=== PATIENT | female | born 1950 | race African-American/Black ===

== ENCOUNTER 2018-06-17 09:10 | Emergency (ER) | payer BC, OTHER ==
[2018-06-17 09:30] VITALS: BP 159/84; PULSE 65; TEMP 97.7; BMI 21.9
--- NOTE | 2018-06-17 11:23 | PDOC ---
History of Present Illness - General Chief Complaint: Injury Stated Complaint: FALL Time Seen by Provider: 06/17/18 10:03 History Source: Patient Exam Limitations: Clinical Condition - History of Present Illness Initial Comments: 06/17/18 11:18 Patient with no significant past medical history present with complaint of left knee and left wrist and hand pain status post slip and fall in the street today. This is the third fall in the past 4 months. Patient was advised she will need a cane to help with ambulate the patient refused to use cane. Patient denies dizziness, lightheadedness before or after fall .patient denies hitting head or loss of consciousness Timing/Duration: 1-3 hours Past History - Past Medical History Allergies/Adverse Reactions: Allergies Allergy/AdvReac Type Severity Reaction Status Date / Time Penicillins Allergy Mild Hives Verified 06/17/18 09:55 Home Medications: Ambulatory Orders Amlodipine Besylate 10 mg PO DAILY 02/19/15 Aspirin [ASA -] 81 mg PO DAILY 02/19/15 Clopidogrel Bisulfate [Plavix -] 75 mg PO DAILY 02/19/15 Metoprolol Succinate [Toprol Xl -] 100 mg PO DAILY 02/19/15 Valsartan 320 mg PO DAILY 02/19/15 Arm Brace [Wrist Brace] 1 each MC DAILY #1 each 06/17/18 Cardiac Disorders: Yes (5 stents) COPD: No GI Disorders: Yes (DIVERTICULITIS) HTN: Yes Kidney Stones: Yes - Surgical History Cardiac Surgery: Yes (5 stents) - Immunization History Immunization Up to Date: Yes - Suicide/Smoking/Psychosocial Hx Smoking Status: No Smoking History: Never smoked Have you smoked in the past 12 months: No Number of Cigarettes Smoked Daily: 0 If you are a former smoker, when did you quit?: many years Information on smoking cessation initiated: No Hx Alcohol Use: No Drug/Substance Use Hx: No Substance Use Type: None Review of Systems - Review of Systems Able to Perform ROS?: Yes Is the patient limited French proficient: No Constitutional: No: Weakness HEENTM: No: Symptoms Reported, Recent change in vision, Double Vision Respiratory: No: Symptoms reported Cardiac (ROS): No: Symptoms Reported Musculoskeletal: Yes: See HPI, Joint Pain (left knee), Muscle Pain (left knee. left hand). No: Joint Stiffness Neurological: No: Numbness, Paresthesia, Tingling, Weakness All Other Systems: Reviewed and Negative *Physical Exam - Vital Signs Last Vital Signs Temp Pulse Resp BP Pulse Ox 97.7 F 65 16 159/84 100 06/17/18 09:27 06/17/18 09:27 06/17/18 09:27 06/17/18 09:27 06/17/18 09:27 - Physical Exam Comments: 06/17/18 11:40 GENERAL: Well developed, well nourished. Awake and alert. No acute distress. CARDIOVASCULAR: Regular rate and rhythm. No murmurs, rubs, or gallops. PULMONARY: No evidence of respiratory distress. Lungs clear to auscultation bilaterally. No wheezing, rales or rhonchi. ABDOMINAL: Soft. Non-tender. Non-distended. No rebound or guarding. No organomegaly. Normoactive bowel sounds MUSCULOSKELETAL : moderate tenderness over dorsal aspect of left hand and wrist down to left 4th and 5th phalanges. no swelling to hand or wrist. No tenderness to left forearm, elbow or upper arm. FROM of left wrist and hand. mild tenderness to anterior patella of left knee. No bony deformities SKIN: Warm and dry. Normal capillary refill. multiple superficial abrasions to anterior patella of left knee with minimal bleeding. NEUROLOGICAL: Alert, awake, appropriate. No motor deficits in the lower extremities. Gait is normal without ataxia. PSYCHIATRIC: Cooperative. Good eye contact. Appropriate mood and affect. General Appearance: Yes: Nourished, Appropriately Dressed. No: Apparent Distress ED Treatment Course - RADIOLOGY Radiology Studies Ordered: Category Date Time Status KNEE 3 POS-LEFT [RAD] Stat Radiology 06/17/18 10:22 Taken WRIST W/HAND-LEFT* [RAD] Stat Radiology 06/17/18 10:22 Taken Medical Decision Making - Medical Decision Making 06/17/18 11:20 Patient with no significant past medical history present with complaint of left knee and left wrist and hand pain status post slip and fall in the street today. This is the third fall in the past 4 months. Patient was advised she will need a cane to help with ambulate the patient refused to use cane. Patient denies dizziness, lightheadedness before or after fall .patient denies hitting head or loss of consciousness. Exam significant for multiple superficial abrasion to anterior patella of left knee with mild tenderness to patellar of left knee. Mild tenderness to dorsal aspect of left wrist and hand which is worse with flexion of left wrist. No hand swelling or deformity. Point tenderness over medial side of left wrist. X-ray of left wrist showed separation of distal ulnar radial joint with no acute fracture. X-ray of left knee shows no acute pathology. Patient will be discharged home on hand support brace with orthopedist follow-up. Patient educated on home wound care with bacitracin to wound twice a day until healed. Patient advised on use of cane to help with ambulate and will get cane at pharmacy today *DC/Admit/Observation/Transfer Diagnosis at time of Disposition: Abrasion, left knee, initial encounter, Left anterior knee pain Sprain of left wrist Qualifiers: Encounter type: initial encounter Qualified Code(s): S63.502A - Unspecified sprain of left wrist, initial encounter - Discharge Dispostion Disposition: HOME Condition at time of disposition: Stable Decision to Admit order: No - Prescriptions Prescriptions: Arm Brace [Wrist Brace] 1 each MC DAILY #1 each - Referrals Referrals: Miguel Franklin DO [Staff Physician] - - Patient Instructions Printed Discharge Instructions: DI for Wrist Sprain, DI for Knee Sprain Additional Instructions: use provide wrist support splint daily until orthopedics follow-up. Take Tylenol as needed for pain. Use provided bacitracin on wound twice/day until healed. Use cane to ambulate as discussed. Follow-up with referred orthopedics for wrist pain - Post Discharge Activity
== END 2018-06-17 11:58 | disposition home or self-care (01) ==
LOC: JERFT 09:10
DX: S63.502A Unspecified sprain of left wrist, initial encounter (principal); M25.562 Pain in left knee; S80.212A Abrasion, left knee, initial encounter; W18.39XA Other fall on same level, initial encounter; Y93.89 Activity, other specified; Y92.410 Unspecified street and highway as the place of occurrence of the external cause; Z95.5 Presence of coronary angioplasty implant and graft; I10 Essential (primary) hypertension; Z87.442 Personal history of urinary calculi
CPT/HCPCS: 73110-TC-LT-FY; 73130-TC-LT-FY; 73562-TC-LT-FY; 99281-25

== ENCOUNTER 2018-07-04 08:45 | Emergency (ER) | payer BC, OTHER ==
[2018-07-04 08:54] VITALS: BP 136/77; PULSE 67; TEMP 97.6; BMI 20.2
--- NOTE | 2018-07-04 09:12 | PDOC ---
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 Patient states she started having pain on the the left side of her chest overlying a dermatomal distribution on . On Friday, she developed a significant rash and the pain continued, now rated 15/10. Patient unable to sleep last night as she was not able to lay on her left side. She states her current pain does not feel like the chest pain she has when she had an [place]. Has not taken anything over-the- counter for her pain. Reports that she had a stress test and carotid doppler study last week but does not know the result. Patient says she believes she received the shingles vaccine. No nausea, vomiting, or diaphoresis. Denies fevers or chills. PCP: Dr. Valdez Cardio: Dr. Willoughby Past History - Past Medical History Allergies/Adverse Reactions: Allergies Allergy/AdvReac Type Severity Reaction Status Date / Time Penicillins Allergy Mild Hives Verified 06/17/18 09:55 Home Medications: Ambulatory Orders Amlodipine Besylate 10 mg PO DAILY 02/19/15 Aspirin [ASA -] 81 mg PO DAILY 02/19/15 Clopidogrel Bisulfate [Plavix -] 75 mg PO DAILY 02/19/15 Atorvastatin Ca [Lipitor] 80 mg PO HS 07/03/18 Gabapentin [Neurontin -] 400 mg PO BID 07/03/18 Lipase/Protease/Amylase [Az Lomax 3,000 Units Capsule] 1 cap PO DAILY 07/03/18 Metoprolol Succinate [Toprol Xl] 50 mg PO DAILY 07/03/18 Pantoprazole Sodium 40 mg PO DAILY 07/03/18 Valsartan 80 mg PO DAILY 07/03/18 Ibuprofen [Motrin -] 600 mg PO Q6H PRN #60 tablet 07/04/18 Valacyclovir HCl [Valtrex -] 1,000 mg PO TID #20 tablet 07/04/18 Cardiac Disorders: Yes (CAD S/P PCI/STENT,[place],MITRSL VALVE PROLAPSE,REGURGITATION ) CVA: Yes (RIGHT SIDED RESIDUAL DEFICIT) COPD: No GI Disorders: Yes (DIVERTICULOSIS) HTN: Yes Hypercholesterolemia: Yes Kidney Stones: Yes - Surgical History Cardiac Surgery: Yes (S/P CORONARY STENT PLACEMENT) - Immunization History Immunization Up to Date: Yes - Suicide/Smoking/Psychosocial Hx Smoking Status: No Smoking History: Unknown if ever smoked Have you smoked in the past 12 months: No Number of Cigarettes Smoked Daily: 0 If you are a former smoker, when did you quit?: many years Hx Alcohol Use: No Drug/Substance Use Hx: No Substance Use Type: None Review of Systems - Review of Systems Comments:: Constitutional: no fever, no chills HEENT: no throat pain, no dysphagia Cardiovascular: +chest pain, no palpitations Respiratory: no cough, no shortness of breath Gastrointestinal: no abdominal pain, no nausea Genitourinary: no dysuria, no frequency Musculoskeletal: no myalgia, no arthralgia Skin: +rash, +skin pain Neurologic: no headache, no weakness *Physical Exam - Vital Signs Last Vital Signs Temp Pulse Resp BP Pulse Ox 97.6 F 67 17 136/77 100 07/04/18 08:47 07/04/18 08:47 07/04/18 08:47 07/04/18 08:47 07/04/18 08:47 - Physical Exam Comments: General: Awake, alert, and fully oriented, in no acute distress Head: No signs of trauma Eyes: EOMI, sclera anicteric ENT: Moist mucus membranes Neck: Normal ROM, supple Lungs: Lungs clear, Normal breath sounds Cardio: Regular rhythm, S1 and S2 present Abdomen: Soft, nontender. No guarding, no rebound, no masses Extremities: Normal range of motion, Distal pulses present SKIN: Vesicular rash present unilaterally on the left overlying T4-T6 distribution both anteriorly and posteriorly which is tender to palpation and without crusting, does not cross midline Neurologic: Cranial nerves II through XII grossly intact. 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 DDX including herpes zoster, ACS, PE, PNA, MSK Patient's pain is likely due to shingles rash, but since she has cardiac risk factors, we will proceed with cardiac workup. Percocet and motrin ordered for analgesia First dose of valtrex for herpes zoster 07/04/18 10:36 CBC WBC 4.0 K/mm3 (4.0-10.0) 07/04/18 10:29 RBC 4.34 M/mm3 (3.60-5.2) 07/04/18 10:29 Hgb 13.4 GM/dL (10.7-15.3) 07/04/18 10:29 Hct 39.6 % (32.4-45.2) 07/04/18 10:29 MCV 91.3 fl (80-96) 07/04/18 10:29 MCH 30.8 pg (25.7-33.7) 07/04/18 10:29 MCHC 33.7 g/dl (32.0-36.0) 07/04/18 10:29 RDW 13.1 % (11.6-15.6) 07/04/18 10:29 Plt Count 163 K/MM3 (134-434) D 07/04/18 10:29 MPV 7.7 fl (7.5-11.1) 07/04/18 10:29 Absolute Neuts (auto) 1.8 K/mm3 (1.5-8.0) 07/04/18 10:29 Neutrophils % 44.5 % (42.8-82.8) D 07/04/18 10:29 Neutrophils % (Manual) 39.7 % (42.8-82.8) L 07/04/18 10:29 Band Neutrophils % 1.7 % 07/04/18 10:29 Lymphocytes % 30.7 % (8-40) D 07/04/18 10:29 Lymphocytes % (Manual) 35.3 % (8-40) 07/04/18 10:29 Monocytes % 23.4 % (3.8-10.2) H D 07/04/18 10:29 Monocytes % (Manual) 9 % (3.8-10.2) 07/04/18 10:29 Eosinophils % 0.5 % (0-4.5) 07/04/18 10:29 Eosinophils % (Manual) 0.0 % (0-4.5) 07/04/18 10:29 Basophils % 0.9 % (0-2.0) 07/04/18 10:29 Basophils % (Manual) 0.0 % (0-2.0) 07/04/18 10:29 Myelocytes % (Man) 0 % (0-2) 07/04/18 10:29 Promyelocytes % (Man) 0 % (0-2) 07/04/18 10:29 Blast Cells % (Manual) 0 % (0-0) 07/04/18 10:29 Nucleated RBC % 0 % (0-0) 07/04/18 10:29 Metamyelocytes 0 % (0-2) 07/04/18 10:29 Hypochromia 0 07/04/18 10:29 Platelet Estimate Normal 07/04/18 10:29 Polychromasia 0 07/04/18 10:29 Poikilocytosis 0 07/04/18 10:29 Anisocytosis 1+ 07/04/18 10:29 Microcytosis 1+ 07/04/18 10:29 Macrocytosis 0 07/04/18 10:29 No anemia or leukocytosis CMP Sodium 137 mmol/L (136-145) 07/04/18 10:29 Potassium 4.8 mmol/L (3.5-5.1) 07/04/18 10:29 Chloride 107 mmol/L (98-107) 07/04/18 10:29 Carbon Dioxide 25 mmol/L (21-32) 07/04/18 10:29 Anion Gap 6 MMOL/L (8-16) L 07/04/18 10:29 BUN 18 mg/dL (7-18) 07/04/18 10:29 Creatinine 1.2 mg/dL (0.55-1.3) 07/04/18 10:29 Creat Clearance w eGFR 44.54 (>60) 07/04/18 10:29 Random Glucose 99 mg/dL (74-106) 07/04/18 10:29 Calcium 9.7 mg/dL (8.5-10.1) 07/04/18 10:29 Total Bilirubin 0.5 mg/dL (0.2-1) 07/04/18 10:29 AST 19 U/L (15-37) 07/04/18 10:29 ALT 16 U/L (13-61) 07/04/18 10:29 Alkaline Phosphatase 82 U/L (45-117) 07/04/18 10:29 Creatine Kinase 56 U/L (26-192) 07/04/18 10:29 Troponin I < 0.02 ng/ml (0.00-0.05) 07/04/18 10:29 Total Protein 7.6 g/dl (6.4-8.2) 07/04/18 10:29 Albumin 3.9 g/dl (3.4-5.0) 07/04/18 10:29 Electrolytes unremarkable Tpn undetectable EKG: rate 63, QTc 402, NSR, LVH, no acute ischemic changes CXR: "A single AP view of the chest is submitted. There are clear lungs, normal heart, unfolded aorta and normal dilan. The angles are sharp. The soft tissues are intact. There are degenerative changes. Impression: No acute chest pathology." Patient sleeping in stretcher Valtrex sent to pharmacy Awaiting callback from patient's eligibility supervisor 07/04/18 11:[address] Damon, eligibility supervisor, who is covering Dr. Willoughby's patients today. Informed him that patient's atypical chest pain is likely due to her shingles rash. As this is the case, he is amenable with patient's discharge home. Patient declined opioid pain medicine as an outpatient prescription; motrin prescription sent Patient will be discharged 07/04/18 11:52 *DC/Admit/Observation/Transfer Diagnosis at time of Disposition: Shingles rash Qualifiers: Herpes zoster complications: without complications Qualified Code(s): B02.9 - Zoster without complications - Discharge Dispostion Disposition: HOME Condition at time of disposition: Stable - Prescriptions Prescriptions: Ibuprofen [Motrin -] 600 mg PO Q6H PRN #60 tablet PRN Reason: Pain Valacyclovir HCl [Valtrex -] 1,000 mg PO TID #20 tablet - Referrals - Patient Instructions Printed Discharge Instructions: DI for Shingles Additional Instructions: You came into the ED for chest pain. We performed blood work, EKG, and an Xray which was at your baseline. Your rash is consistent with shingles. Follow-up with a primary care doctor this week to discuss this ED visit and to further evaluate your rash and your chest pain. Your workup is not complete until you do so. Call and make an appointment at the number provided. Prescriptions sent to your pharmacy. You can also take [id number] tylenol or motrin for pain. Follow the instructions on the medication bottle. Please review the handout about your rash. Call for emergency medicine services or go to the emergency room right away if you have symptoms of a heart attack, including: Chest pain, which may feel like a crushing weight A sense of fullness, squeezing, or pressure in the chest Rapid, irregular heartbeat Pain, tingling or numbness in the left shoulder and arm, the neck or jaw, or the right arm Sweating Nausea or vomiting Lightheadedness, weakness, or fainting Shortness of breath If you think you have an emergency, call for medical help right away. - Post Discharge Activity
[2018-07-04] MEDS ORDERED: IBUPROFEN 400 MG TABLET (FP) PO ONE ×2 (10:09→10:24)
--- NOTE | 2018-07-04 10:12 | PDOC ---
Attending Attestation - Resident Resident Name: Berna Seo - ED Attending Attestation I have performed the following: I have examined & evaluated the patient, The case was reviewed & discussed with the resident, I agree w/resident's findings & plan, Exceptions are as noted - HPI HPI: 07/04/18 10:08 67 yo F wtih h/o htn cad ( stents ) HLD here with c/o chest pain. pt states she has a blistery rash under left breast radiating around to back, started yesterday. no f/c states she has associated pain. feels different from pain of prior mi prior to her stents. no n/v no f/c no weakness. no other complaints. insole presser is dr beaulieu. had a stress test last week unsure of results. - Physicial Exam PE: 07/04/18 10:09 awake alert lungs clear bilaterally heart rrr no mrg abd soft nt nd. ext wwp no edema. no calf tenderness. skin zostiform rash under left breast radiating arou d back in t/4/5 dermatome region. fluid filled blisters. - Medical Decision Making 07/04/18 10:11 pt with h/o cad htn here with chest pain and singles. pain likley related to rash. however due to cardiac history cee obtain ekg enzymes and basic labs for underlyingcreatiting prior to starting valtrex. will try to reach insole presser dr beaulieu. ekg unchanged. motrin and percocet for pain control. Heart Score/ECG Review #1 General ECG Interpretation: Sinus Rhythm, Normal Rate (63), Normal Intervals, No acute ischemic changes Compared to previous ECG there are: No significant change (comparison 04/28/15)
[2018-07-04 10:41] LABS: BASO % 0.9 % (0-2.0); EOS % 0.5 % (0-4.5); HEMATOCRIT 39.6 % (32.4-45.2); HEMOGLOBIN 13.4 GM/dL (10.7-15.3); LYMPH % 30.7 % (8-40); MCH 30.8 pg (25.7-33.7); MCHC 33.7 g/dl (32.0-36.0); MEAN CELL VOLUME 91.3 fl (80-96); MEAN PLT VOLUME 7.7 fl (7.5-11.1); MONO % 23.4 % (3.8-10.2); NEUT % 44.5 % (42.8-82.8); PLATELET COUNT 163 K/MM3 (134-434); RBC 4.34 M/mm3 (3.60-5.2); RDW 13.1 % (11.6-15.6)
[2018-07-04] MEDS ORDERED: valACYclovir HCL 1000 MG TABLET PO ONE (10:42)
[2018-07-04] MEDS ORDERED: valACYclovir HCL 500 MG TABLET (FP) ONE (10:50)
[2018-07-04 11:07] LABS: ALBUMIN 3.9 g/dl (3.4-5.0); ALK PHOS 82 U/L (45-117); ANION GAP 6 MMOL/L (8-16); BILIRUBIN,TOTAL 0.5 mg/dL (0.2-1); BLOOD UREA NITROGEN 18 mg/dL (7-18); CALCIUM 9.7 mg/dL (8.5-10.1); CHLORIDE 107 mmol/L (98-107); CO2 25 mmol/L (21-32); CREATININE 1.2 mg/dL (0.55-1.3); GLUCOSE,RANDOM 99 mg/dL (74-106); POTASSIUM 4.8 mmol/L (3.5-5.1); SGOT/AST 19 U/L (15-37); SGPT/ALT 16 U/L (13-61); SODIUM 137 mmol/L (136-145); TOT PROT 7.6 g/dl (6.4-8.2)
[2018-07-04 13:16] LABS: ANISOCYTOSIS 1+; MACROCYTOSIS 0; PLATELET ESTIMATE NORMAL
--- NOTE | 2018-07-04 15:04 | EKG ---
Test Reason : Blood Pressure : / mmHG Vent. Rate : 063 BPM Atrial Rate : 063 BPM P-R Int : 162 ms QRS Dur : 104 ms QT Int : 402 ms P-R-T Axes : 069 055 054 degrees QTc Int : 411 ms NORMAL SINUS RHYTHM POSSIBLE LEFT ATRIAL ENLARGEMENT LEFT VENTRICULAR HYPERTROPHY ABNORMAL ECG WHEN COMPARED WITH ECG OF 28-APR-2015 21:13, NON-SPECIFIC CHANGE IN ST SEGMENT IN ANTERIOR LEADS Confirmed by LISETTE STONE, CECE ([id number]) on 07/04/2018 3:04:32 PM Referred By: Confirmed By:CECE KNOX MD
== END 2018-07-04 12:42 | disposition home or self-care (01) ==
LOC: JER 08:45
DX: B02.9 Zoster without complications (principal); I25.10 Atherosclerotic heart disease of native coronary artery without angina pectoris; I10 Essential (primary) hypertension; Z95.5 Presence of coronary angioplasty implant and graft; I25.2 Old myocardial infarction; E78.5 Hyperlipidemia, unspecified; I34.1 Nonrheumatic mitral (valve) prolapse; I34.0 Nonrheumatic mitral (valve) insufficiency; I69.859 Hemiplegia and hemiparesis following other cerebrovascular disease affecting unspecified side; Z79.01 Long term (current) use of anticoagulants
CPT/HCPCS: 36415; 71045-TC-FY; 80053; 82550; 84484; 85025; 93005; 93010; 99282-25

== ENCOUNTER 2018-10-01 12:56 | Day surgery (SDC) | payer BC, OTHER ==
[2018-10-01 13:35] VITALS: BMI 19.5
[2018-10-01] MEDS ORDERED: LIDOCAINE VISCOUS 2% ORAL/TOP 20 ML UNIT-DOSE CUP ONE (13:36)
[2018-10-01 14:54] VITALS: TEMP 98.3
--- NOTE | 2018-10-01 14:58 | ECHO ---
Name: DIXON, AJIRO Exam:Transesophageal Echocardiogram Study Date: 10/01/2018 02:02 PM Age: 67 yrs Reason For Study: MITRAL VALVE PROLAPSE Height: 63 in Weight: 110 lb BSA: 1.5 m2 Procedure: A 2D transesophageal echocardiogram with Doppler and color flow Doppler was performed. Informed conse nt for Transesophageal Echocardiogram, and use of a contrast agent as needed, was obtained prior to the proc edure. The patient was brought to the endoscopy suite in a fasting state. An intravenous line was placed. A topical anesthetic agent was used for oropharangeal anesthesia. A bite block was inserted. IV concious sedati on was administered using propafol. A multifrequency, multiplane transesopheageal echocardiographic endoscop e was inserted and manipulated in the standard fashion to achieve multiplane views. The usual views were ob tained; basal, mid-esophageal, transgastric and aortic views. The patient's vital signs, including blood pres sure, heart rate, pulse oximetry and cardiac rhythm were monitored throughout the procedure and remained st able. The patient tolerated the procedure well without evidence of orophangeal or esophageal trauma. There were no complications. The patient was in normal sinus rhythm during the exam. Left Ventricle The left ventricle is normal in size. Left ventricular systolic function is normal. The left ventricu lar ejection fraction is normal. No regional wall motion abnormalities noted. Atria The left atrial size is normal. No thrombus is detected in the left atrial appendage. No left atrial mass or thrombus visualized. The interatrial septum is intact with no evidence for an atrial septal defect. I njection of contrast documented no interatrial shunt. Mitral Valve There is severe mitral valve prolapse. Prolapse of the posterior mitral leaflet(s). Prolapse of the m iddle scallop of the posterior mitral leaflet. There is moderate to severe mitral regurgitation. The mitral regurgitant jet is anteriorly directed, which is consistent with posterior leaflet pathology. Tricuspid Valve The tricuspid valve is not well visualized, but is grossly normal. There is mild tricuspid regurgitat ion. Aortic Valve The aortic valve is trileaflet. The aortic valve opens well. The aortic valve is normal in structure and function. Trace aortic regurgitation. Pulmonic Valve The pulmonic valve is not well visualized. Great Vessels Diffuse atherosclerotic plaque with ulceration and calcification noted in decending thoracic aorta an d distal aortic arch. Pericardium/Pluera There is no pericardial effusion. Interpretation Summary The left ventricle is normal in size. Left ventricular systolic function is normal. The left ventricular ejection fraction is normal. No regional wall motion abnormalities noted. The left atrial size is normal. No thrombus is detected in the left atrial appendage. No left atrial mass or thrombus visualized. The interatrial septum is intact with no evidence for an atrial septal defect. Injection of contrast documented no interatrial shunt. There is severe mitral valve prolapse. Prolapse of the posterior mitral leaflet(s). Prolapse of the middle scallop of the posterior mitral leaflet. There is moderate to severe mitral regurgitation. The mitral regurgitant jet is anteriorly directed, which is consistent with posterior leaflet patholo gy. There is mild tricuspid regurgitation. The aortic valve is normal in structure and function. Trace aortic regurgitation. Diffuse atherosclerotic plaque with ulceration and calcification noted in decending thoracic aorta an d distal aortic arch There is no pericardial effusion. Rogers Willoughby MD 10/01/2018 02:57 PM
[2018-10-01 15:31] VITALS: BP 146/67; PULSE 61
== END 2018-10-01 15:35 | disposition home or self-care (01) ==
LOC: JASU-SURG 12:56
PROVIDERS: ATTEND Internal Medicine Cardiovascular Disease
PROC: B246ZZ4 Ultrasonography of Right and Left Heart, Transesophageal (ICD-10-PCS; principal; 2018-10-01 13:00)
DX: I34.0 Nonrheumatic mitral (valve) insufficiency (principal)
CPT/HCPCS: 93312; 93325

== ENCOUNTER 2020-03-14 11:42 | Inpatient (IN) | payer BC, OTHER ==
[2020-03-14] MEDS ORDERED: ASPIRIN 325 MG TABLET PO ONE (12:13)
[2020-03-14] MEDS ORDERED: NITROGLYCERIN 2% OINTMENT - 1GM PACKET TD ONE (12:14)
[2020-03-14] MEDS ORDERED: ASPIRIN 325 MG ENTERIC COATED TABLET (FP) ONE (13:15)
[2020-03-14] MEDS ORDERED: NITROGLYCERIN SUBLINGUAL 1/150 0.4 MG TAB ONE (13:17)
[2020-03-14] MEDS: NITROGLYCERIN SUBLINGUAL 1/150 0.4 MG TAB SL PRN ×2 (13:20→13:35)
[2020-03-14 13:37] LABS: BASO % 0.4 % (0-2.0); EOS % 0.4 % (0-4.5); HEMATOCRIT 46.1 % (32.4-45.2); HEMOGLOBIN 15.3 GM/dL (10.7-15.3); LYMPH % 23.1 % (8-40); MCH 30.3 pg (25.7-33.7); MCHC 33.2 g/dl (32.0-36.0); MEAN CELL VOLUME 91.4 fl (80-96); MEAN PLT VOLUME 8.3 fl (7.5-11.1); MONO % 4.5 % (3.8-10.2); NEUT % 71.6 % (42.8-82.8); PLATELET COUNT 249 K/MM3 (134-434); RBC 5.05 M/mm3 (3.60-5.2); RDW 13.5 % (11.6-15.6); WHITE BLOOD COUNT 9.6 K/mm3 (4.0-10.0)
[2020-03-14] MEDS ORDERED: ACETAMINOPHEN 1000 MG/100 ML VIAL (NON FORMULARY) IVPB ONE (13:49)
[2020-03-14 14:01] LABS: POTASSIUM 5.3 mmol/L (3.5-5.1)
[2020-03-14 14:03] LABS: ALBUMIN 4.1 g/dl (3.4-5.0); BLOOD UREA NITROGEN 19.8 mg/dL (7-18); CALCIUM 9.7 mg/dL (8.5-10.1)
[2020-03-14 14:06] LABS: CREATININE 0.9 mg/dL (0.55-1.3)
[2020-03-14 14:08] LABS: BILIRUBIN,TOTAL 0.7 mg/dL (0.2-1); TOT PROT 8.4 g/dl (6.4-8.2)
[2020-03-14] MEDS ORDERED: ACETAMINOPHEN INJECTION 100 ML IVPB ONE (15:23)
[2020-03-14] MEDS ORDERED: morphine CARPU-JECT 4 MG/1 ML DISP.SYRIN IVPUSH ONE (15:41)
[2020-03-14] MEDS ORDERED: METOPROLOL TARTRATE 25 MG TABLET (FP) PO ONE (16:49)
[2020-03-14] MEDS ORDERED: morphine SULFATE 4 MG/ML VIAL ONE (16:59)
[2020-03-14] MEDS ORDERED: METOPROLOL TARTRATE 25 MG TABLET (FP) ONE (16:59)
[2020-03-14] MEDS ORDERED: ENOXAPARIN NA (PORCINE) 60 MG/0.6 ML DISP.SYRIN SQ ONE ×2 (17:45→19:05)
[2020-03-14] MEDS: DEXTROSE 5%-0.45% SALINE 1,000 ML IV SCH (20:16)
[2020-03-14] MEDS ORDERED: PANTOPRAZOLE SODIUM 40 MG VIAL IVPUSH ONE (20:59)
[2020-03-14] MEDS ORDERED: TEMAZEPAM 15 MG CAPSULE PO SCH (22:00)
[2020-03-14] MEDS ORDERED: ATORVASTATIN CA 40 MG TABLET (FP) ONE (22:26)
[2020-03-14] MEDS ORDERED: PANTOPRAZOLE SODIUM 40 MG/100 ML BAG IVPB ONE (22:26)
[2020-03-14] MEDS ORDERED: TEMAZEPAM 15 MG CAPSULE ONE (22:26)
[2020-03-14] MEDS: ATORVASTATIN CA 40 MG TABLET (FP) PO SCH (22:33)
[2020-03-14] MEDS: RANOLAZINE E.R. 500 MG TABLET (FP) PO SCH (22:52)
[2020-03-15 00:13] VITALS: BMI 21.7
[2020-03-15 08:04] LABS: BASO % 0.5 % (0-2.0); EOS % 0.3 % (0-4.5); HEMATOCRIT 44.2 % (32.4-45.2); HEMOGLOBIN 14.4 GM/dL (10.7-15.3); LYMPH % 22.7 % (8-40); MCH 29.8 pg (25.7-33.7); MCHC 32.5 g/dl (32.0-36.0); MEAN CELL VOLUME 91.9 fl (80-96); MEAN PLT VOLUME 9.2 fl (7.5-11.1); MONO % 6.8 % (3.8-10.2); NEUT % 69.7 % (42.8-82.8); PLATELET COUNT 200 K/MM3 (134-434); RBC 4.82 M/mm3 (3.60-5.2); RDW 13.7 % (11.6-15.6); WHITE BLOOD COUNT 9.5 K/mm3 (4.0-10.0)
[2020-03-15 08:16] LABS: POTASSIUM 4.1 mmol/L (3.5-5.1)
[2020-03-15 08:19] LABS: CALCIUM 9.3 mg/dL (8.5-10.1)
[2020-03-15 08:20] LABS: ALBUMIN 3.6 g/dl (3.4-5.0); MAGNESIUM 1.9 mg/dL (1.8-2.4)
[2020-03-15 08:24] LABS: TOT PROT 7.4 g/dl (6.4-8.2)
[2020-03-15 08:26] LABS: BILIRUBIN,TOTAL 0.9 mg/dL (0.2-1)
[2020-03-15] MEDS: LOSARTAN POTASSIUM 50 MG TABLET PO SCH (10:32)
[2020-03-15] MEDS: ASPIRIN 81 MG CHEWABLE TABLETS PO SCH (10:32)
[2020-03-15] MEDS: amLODIPine BESYLATE 10 MG TABLET (FP) PO SCH (10:33)
[2020-03-15] MEDS: RANOLAZINE E.R. 500 MG TABLET (FP) PO SCH ×2 (10:33→21:10)
[2020-03-15] MEDS: PANTOPRAZOLE SODIUM 40 MG VIAL IVPUSH SCH (10:33)
[2020-03-15] MEDS: DEXTROSE 5%-0.45% SALINE 1,000 ML IV SCH (12:41)
[2020-03-15] MEDS ORDERED: ONDANSETRON 4 MG/2 ML VIAL IVPUSH PRN (15:54)
[2020-03-15] MEDS ORDERED: ONDANSETRON 4 MG/2 ML VIAL IVPUSH ONE (15:58)
[2020-03-15] MEDS: CLOPIDOGREL BISULFATE 75 MG TABLET (FP) PO SCH (16:18)
[2020-03-15] MEDS: EZETIMIBE 10 MG TABLET (FP) PO SCH (16:18)
[2020-03-15] MEDS: oxyCODONE HCL 5 MG TABLET PO PRN (21:10)
[2020-03-15] MEDS: ATORVASTATIN CA 40 MG TABLET (FP) PO SCH (21:10)
[2020-03-16] MEDS: amLODIPine BESYLATE 10 MG TABLET (FP) PO SCH (11:10)
[2020-03-16] MEDS: CLOPIDOGREL BISULFATE 75 MG TABLET (FP) PO SCH (11:10)
[2020-03-16] MEDS: LOSARTAN POTASSIUM 50 MG TABLET PO SCH (11:10)
[2020-03-16] MEDS: EZETIMIBE 10 MG TABLET (FP) PO SCH (11:10)
[2020-03-16] MEDS: RANOLAZINE E.R. 500 MG TABLET (FP) PO SCH ×2 (11:10→22:42)
[2020-03-16] MEDS: PANTOPRAZOLE SODIUM 40 MG VIAL IVPUSH SCH (11:10)
[2020-03-16] MEDS: ASPIRIN 81 MG CHEWABLE TABLETS PO SCH (11:11)
[2020-03-16] MEDS: oxyCODONE HCL 5 MG TABLET PO PRN ×2 (13:18→22:40)
[2020-03-16] MEDS ORDERED: PT OWN MED DRAWER 7, Y5N ONE ×2 (15:49→20:20)
[2020-03-16] MEDS: ATORVASTATIN CA 40 MG TABLET (FP) PO SCH (22:42)
[2020-03-16] MEDS: SACUBITRIL/VALSARTAN 24 MG-26 MG TABLET PO SCH (22:42)
[2020-03-17] MEDS: oxyCODONE HCL 5 MG TABLET PO PRN ×2 (03:43→21:39)
[2020-03-17] MEDS ORDERED: FUROSEMIDE 40 MG/4 ML INJECTABLE VIAL IVPUSH ONE (08:31)
[2020-03-17] MEDS ORDERED: PT OWN MED DRAWER 7, Y5N ONE ×3 (09:05→21:38)
[2020-03-17] MEDS: SPIRONOLACTONE 25 MG TABLET PO SCH (09:49)
[2020-03-17] MEDS: ASPIRIN 81 MG CHEWABLE TABLETS PO SCH (09:50)
[2020-03-17] MEDS: SACUBITRIL/VALSARTAN 24 MG-26 MG TABLET PO SCH ×2 (09:50→21:39)
[2020-03-17] MEDS: RANOLAZINE E.R. 500 MG TABLET (FP) PO SCH ×2 (09:51→21:39)
[2020-03-17] MEDS: PANTOPRAZOLE SODIUM 40 MG VIAL IVPUSH SCH (09:51)
[2020-03-17] MEDS: amLODIPine BESYLATE 10 MG TABLET (FP) PO SCH (09:51)
[2020-03-17] MEDS: EZETIMIBE 10 MG TABLET (FP) PO SCH (09:51)
[2020-03-17] MEDS: CLOPIDOGREL BISULFATE 75 MG TABLET (FP) PO SCH (09:51)
[2020-03-17] MEDS: ATORVASTATIN CA 40 MG TABLET (FP) PO SCH (21:39)
[2020-03-18] MEDS ORDERED: PT OWN MED DRAWER 7, Y5N ONE (09:03)
[2020-03-18 09:12] VITALS: BP 111/64; PULSE 69; TEMP 97.5
[2020-03-18] MEDS: CLOPIDOGREL BISULFATE 75 MG TABLET (FP) PO SCH (09:12)
[2020-03-18] MEDS: RANOLAZINE E.R. 500 MG TABLET (FP) PO SCH (09:12)
[2020-03-18] MEDS: SACUBITRIL/VALSARTAN 24 MG-26 MG TABLET PO SCH (09:12)
[2020-03-18] MEDS: ASPIRIN 81 MG CHEWABLE TABLETS PO SCH (09:12)
[2020-03-18] MEDS: EZETIMIBE 10 MG TABLET (FP) PO SCH (09:12)
[2020-03-18] MEDS: PANTOPRAZOLE SODIUM 40 MG VIAL IVPUSH SCH (09:12)
[2020-03-18] MEDS: SPIRONOLACTONE 25 MG TABLET PO SCH (09:12)
[2020-03-18] MEDS: amLODIPine BESYLATE 10 MG TABLET (FP) PO SCH (09:12)
== END 2020-03-18 15:42 | disposition home health service (06) | DRG 281 ==
LOC: JER 11:42 → JERBED 15:44 → J4W 23:19
PROVIDERS: ADMIT Internal Medicine; ATTEND Internal Medicine
DX: I21.A1 Myocardial infarction type 2 (principal); I69.351 Hemiplegia and hemiparesis following cerebral infarction affecting right dominant side; K57.32 Diverticulitis of large intestine without perforation or abscess without bleeding; I10 Essential (primary) hypertension; E78.5 Hyperlipidemia, unspecified; Z88.0 Allergy status to penicillin; I25.10 Atherosclerotic heart disease of native coronary artery without angina pectoris; Z95.1 Presence of aortocoronary bypass graft; Z95.2 Presence of prosthetic heart valve; I25.2 Old myocardial infarction; G89.29 Other chronic pain; K76.89 Other specified diseases of liver; I25.5 Ischemic cardiomyopathy; K80.20 Calculus of gallbladder without cholecystitis without obstruction
CPT/HCPCS: 36415; 71045-TC-FY; 76705-TC; 80053; 80061; 82550; 83690; 83721; 83735; 83880; 84443; 84484; 85025; 86140; 93005; 93010; 93306-TC; 94761; 97116-GP; 97161-GP; 99285-25; C9803; J0131; U0003

== ENCOUNTER 2020-03-29 16:11 | Observation (INO) | payer BC, OTHER ==
[2020-03-29 16:24] VITALS: BMI 20.9
[2020-03-29] MEDS ORDERED: GLUCAGON 1 MG KIT IVPUSH ONE (17:02)
[2020-03-29] MEDS ORDERED: ONDANSETRON 4 MG/2 ML VIAL IVPUSH ONE (17:03)
[2020-03-29] MEDS ORDERED: LACTATED RINGERS SOLUTION 1000 ML INFUS.BAG IV ONE (17:06)
[2020-03-29] MEDS ORDERED: GLUCAGON 1 MG KIT ONE (17:39)
[2020-03-29] MEDS ORDERED: ONDANSETRON 4 MG/2 ML VIAL ONE (17:39)
[2020-03-29 17:52] LABS: BASO % 0.6 % (0-2.0); EOS % 1.2 % (0-4.5); HEMOGLOBIN 12.8 GM/dL (10.7-15.3); LYMPH % 44.2 % (8-40); MCH 30.1 pg (25.7-33.7); MCHC 32.7 g/dl (32.0-36.0); MEAN CELL VOLUME 91.8 fl (80-96); MEAN PLT VOLUME 8.4 fl (7.5-11.1); MONO % 7.8 % (3.8-10.2); NEUT % 46.2 % (42.8-82.8); PLATELET COUNT 306 K/MM3 (134-434); RBC 4.25 M/mm3 (3.60-5.2); RDW 13.2 % (11.6-15.6); WHITE BLOOD COUNT 8.4 K/mm3 (4.0-10.0)
[2020-03-29] MEDS ORDERED: METOCLOPRAMIDE HCL INJECTION 10 MG/2 ML VIAL IVPUSH ONE (17:53)
[2020-03-29 17:55] LABS: INR 0.92 (0.83-1.09); PROTHROMBIN TIME (PATIENT) 11.4 SEC (9.7-13.0)
[2020-03-29 17:58] LABS: ACTIVATED PTT 37.9 SECONDS (25.2-36.5)
[2020-03-29] MEDS ORDERED: METOCLOPRAMIDE HCL INJECTION 10 MG/2 ML VIAL ONE (17:59)
[2020-03-29 18:06] LABS: CHLORIDE 104 mmol/L (98-107); SODIUM 133 mmol/L (136-145)
[2020-03-29 18:09] LABS: CALCIUM 9.5 mg/dL (8.5-10.1)
[2020-03-29 18:10] LABS: ALBUMIN 3.8 g/dl (3.4-5.0); BLOOD UREA NITROGEN 33.7 mg/dL (7-18); CO2 24 mmol/L (21-32); GLUCOSE,RANDOM 121 mg/dL (74-106); MAGNESIUM 2.3 mg/dL (1.8-2.4)
[2020-03-29 18:13] LABS: CREATININE 1.5 mg/dL (0.55-1.3); PHOSPHOROUS 4.1 mg/dL (2.5-4.9); SGOT/AST 29 U/L (15-37); SGPT/ALT 18 U/L (13-61)
[2020-03-29 18:14] LABS: BILIRUBIN,TOTAL 0.8 mg/dL (0.2-1); LDH 435 U/L (84-246); TOT PROT 7.3 g/dl (6.4-8.2)
[2020-03-29 18:16] LABS: ALK PHOS 77 U/L (45-117); N-TERMINAL BNP 454.8 pg/ml (5-125)
[2020-03-29 18:20] LABS: ANION GAP 4 MMOL/L (8-16)
[2020-03-29 18:37] LABS: POTASSIUM 7.6 mmol/L (3.5-5.1)
[2020-03-29] MEDS ORDERED: SODIUM POLYSTYRENE SULFONATE 15 GM/60 ML BOTTLE PO ONE (20:35)
[2020-03-29] MEDS ORDERED: DEXTROSE 50%-WATER - 25 GM/50 ML VIAL IVPUSH ONE (20:36)
[2020-03-29 21:22] LABS: BLOOD UREA NITROGEN 34.2 mg/dL (7-18); CALCIUM 9.4 mg/dL (8.5-10.1)
[2020-03-29 21:26] LABS: CREATININE 1.3 mg/dL (0.55-1.3)
[2020-03-29 21:39] LABS: POTASSIUM 6.1 mmol/L (3.5-5.1)
[2020-03-29] MEDS ORDERED: ATORVASTATIN CA 40 MG TABLET (FP) ONE (22:34)
[2020-03-29 22:58] LABS: POTASSIUM 5.8 mmol/L (3.5-5.1)
[2020-03-29 23:01] LABS: BLOOD UREA NITROGEN 32.1 mg/dL (7-18); CALCIUM 9.3 mg/dL (8.5-10.1)
[2020-03-29 23:05] LABS: CREATININE 1.3 mg/dL (0.55-1.3)
[2020-03-29] MEDS ORDERED: CALCIUM GLUCONATE 10% - 1,000 MG/10 ML VIAL IVPUSH ONE (23:28)
[2020-03-30] MEDS ORDERED: INSULIN REGULAR HUMAN 100 UNITS/ML *VIAL IVPUSH ONE (00:10)
[2020-03-30] MEDS ORDERED: SODIUM ZIRCONIUM CYCLOSILICATE (LOKELMA) 5 GM PACKET PO ONE (00:11)
[2020-03-30] MEDS ORDERED: DEXTROSE 50%-WATER 25 GM/50 ML DISP.SYRIN ONE (00:27)
[2020-03-30] MEDS ORDERED: CALCIUM GLUCONATE 10% - 1,000 MG/10 ML VIAL ONE ×2 (00:27→00:28)
[2020-03-30] MEDS ORDERED: SODIUM ZIRCONIUM CYCLOSILICATE (LOKELMA) 5 GM PACKET ONE (00:27)
[2020-03-30 08:37] LABS: CALCIUM 10.3 mg/dL (8.5-10.1)
[2020-03-30 08:38] LABS: BLOOD UREA NITROGEN 31.4 mg/dL (7-18)
[2020-03-30 08:41] LABS: CREATININE 1.3 mg/dL (0.55-1.3)
[2020-03-30 08:43] LABS: BILIRUBIN,TOTAL 0.6 mg/dL (0.2-1); TOT PROT 7.5 g/dl (6.4-8.2)
[2020-03-30] MEDS ORDERED: SODIUM POLYSTYRENE SULFONATE 15 GM/60 ML BOTTLE PO ONE (09:16)
[2020-03-30] MEDS: amLODIPine BESYLATE 10 MG TABLET (FP) PO SCH (10:33)
[2020-03-30] MEDS: ASPIRIN 81 MG CHEWABLE TABLETS PO SCH (10:33)
[2020-03-30] MEDS: RANOLAZINE E.R. 500 MG TABLET (FP) PO SCH ×2 (11:39→21:12)
[2020-03-30] MEDS: oxyCODONE HCL 5 MG TABLET PO PRN (20:03)
[2020-03-30] MEDS: ATORVASTATIN CA 40 MG TABLET (FP) PO SCH (21:12)
[2020-03-31] MEDS: RANOLAZINE E.R. 500 MG TABLET (FP) PO SCH ×2 (10:38→21:02)
[2020-03-31] MEDS: ASPIRIN 81 MG CHEWABLE TABLETS PO SCH (10:38)
[2020-03-31] MEDS: amLODIPine BESYLATE 10 MG TABLET (FP) PO SCH (10:38)
[2020-03-31] MEDS: metoPROLOL SUCCINATE 25 MG TAB.SR.24H (FP) PO SCH (10:38)
[2020-03-31] MEDS: oxyCODONE HCL 5 MG TABLET PO PRN ×2 (10:42→21:02)
[2020-03-31 14:37] LABS: POTASSIUM 4.9 mmol/L (3.5-5.1)
[2020-03-31 14:40] LABS: CALCIUM 9.8 mg/dL (8.5-10.1)
[2020-03-31 14:41] LABS: ALBUMIN 3.7 g/dl (3.4-5.0); BLOOD UREA NITROGEN 28.6 mg/dL (7-18)
[2020-03-31 14:44] LABS: CREATININE 1.8 mg/dL (0.55-1.3)
[2020-03-31 14:45] LABS: BILIRUBIN,TOTAL 0.6 mg/dL (0.2-1); TOT PROT 7.1 g/dl (6.4-8.2)
[2020-03-31] MEDS: ATORVASTATIN CA 40 MG TABLET (FP) PO SCH (21:02)
[2020-03-31] MEDS ORDERED: ONDANSETRON 4 MG/2 ML VIAL IVPUSH ONE (23:21)
[2020-04-01 07:56] LABS: POTASSIUM 4.6 mmol/L (3.5-5.1)
[2020-04-01 08:38] LABS: BLOOD UREA NITROGEN 26.3 mg/dL (7-18)
[2020-04-01 08:41] LABS: CREATININE 1.6 mg/dL (0.55-1.3)
[2020-04-01] MEDS: amLODIPine BESYLATE 10 MG TABLET (FP) PO SCH (09:10)
[2020-04-01] MEDS: ASPIRIN 81 MG CHEWABLE TABLETS PO SCH (09:10)
[2020-04-01] MEDS: DEXTROSE 5%-0.45% SALINE 1,000 ML IV SCH (09:10)
[2020-04-01] MEDS: metoPROLOL SUCCINATE 25 MG TAB.SR.24H (FP) PO SCH (09:10)
[2020-04-01] MEDS: RANOLAZINE E.R. 500 MG TABLET (FP) PO SCH ×2 (09:11→21:40)
[2020-04-01] MEDS: ONDANSETRON 4 MG/2 ML VIAL IVPB PRN (09:12)
[2020-04-01] MEDS: oxyCODONE HCL 5 MG TABLET PO PRN ×2 (15:09→21:34)
[2020-04-01] MEDS: PANTOPRAZOLE SODIUM 40 MG VIAL IVPUSH SCH (21:34)
[2020-04-01] MEDS: ATORVASTATIN CA 40 MG TABLET (FP) PO SCH (21:40)
[2020-04-02 08:54] LABS: EOS % 1.4 % (0-4.5); HEMATOCRIT 38.8 % (32.4-45.2); HEMOGLOBIN 12.8 GM/dL (10.7-15.3); LYMPH % 47.5 % (8-40); MCH 29.7 pg (25.7-33.7); MCHC 33.1 g/dl (32.0-36.0); MEAN CELL VOLUME 89.7 fl (80-96); MEAN PLT VOLUME 8.2 fl (7.5-11.1); MONO % 9.7 % (3.8-10.2); NEUT % 40.4 % (42.8-82.8); PLATELET COUNT 279 K/MM3 (134-434); RBC 4.33 M/mm3 (3.60-5.2); RDW 13.2 % (11.6-15.6); WHITE BLOOD COUNT 6.3 K/mm3 (4.0-10.0)
[2020-04-02 09:31] LABS: POTASSIUM 4.9 mmol/L (3.5-5.1)
[2020-04-02 09:33] LABS: CALCIUM 9.1 mg/dL (8.5-10.1)
[2020-04-02 09:34] LABS: ALBUMIN 3.4 g/dl (3.4-5.0); BLOOD UREA NITROGEN 20.6 mg/dL (7-18)
[2020-04-02 09:37] LABS: CREATININE 1.5 mg/dL (0.55-1.3)
[2020-04-02 09:40] LABS: BILIRUBIN,TOTAL 0.6 mg/dL (0.2-1); TOT PROT 6.6 g/dl (6.4-8.2)
[2020-04-02] MEDS: PANTOPRAZOLE SODIUM 40 MG VIAL IVPUSH SCH (10:25)
[2020-04-02] MEDS: DEXTROSE 5%-0.45% SALINE 1,000 ML IV SCH (10:25)
[2020-04-02] MEDS: metoPROLOL SUCCINATE 25 MG TAB.SR.24H (FP) PO SCH (10:25)
[2020-04-02] MEDS: amLODIPine BESYLATE 10 MG TABLET (FP) PO SCH (10:25)
[2020-04-02] MEDS: ONDANSETRON 4 MG/2 ML VIAL IVPB PRN (10:25)
[2020-04-02] MEDS: ASPIRIN 81 MG CHEWABLE TABLETS PO SCH (10:25)
[2020-04-02] MEDS ORDERED: ACETAMINOPHEN 500 MG TABLET (FP) PO ONE (20:56)
[2020-04-02] MEDS: RANOLAZINE E.R. 500 MG TABLET (FP) PO SCH ×2 (21:04→21:05)
[2020-04-02] MEDS: ATORVASTATIN CA 40 MG TABLET (FP) PO SCH (21:05)
[2020-04-03 08:12] LABS: BASO % 0.8 % (0-2.0); EOS % 1.4 % (0-4.5); HEMATOCRIT 37.8 % (32.4-45.2); HEMOGLOBIN 12.3 GM/dL (10.7-15.3); MCH 29.3 pg (25.7-33.7); MCHC 32.5 g/dl (32.0-36.0); MEAN CELL VOLUME 90.1 fl (80-96); MEAN PLT VOLUME 8.2 fl (7.5-11.1); MONO % 9.8 % (3.8-10.2); PLATELET COUNT 283 K/MM3 (134-434); RBC 4.19 M/mm3 (3.60-5.2); RDW 13.1 % (11.6-15.6)
[2020-04-03 08:40] LABS: POTASSIUM 4.5 mmol/L (3.5-5.1)
[2020-04-03 08:43] LABS: ALBUMIN 3.6 g/dl (3.4-5.0); BLOOD UREA NITROGEN 23.1 mg/dL (7-18); CALCIUM 9.4 mg/dL (8.5-10.1)
[2020-04-03 08:48] LABS: BILIRUBIN,TOTAL 0.6 mg/dL (0.2-1); CREATININE 1.5 mg/dL (0.55-1.3); TOT PROT 6.7 g/dl (6.4-8.2)
[2020-04-03] MEDS: amLODIPine BESYLATE 10 MG TABLET (FP) PO SCH (09:42)
[2020-04-03] MEDS: ASPIRIN 81 MG CHEWABLE TABLETS PO SCH (09:42)
[2020-04-03] MEDS: DEXTROSE 5%-0.45% SALINE 1,000 ML IV SCH (09:42)
[2020-04-03] MEDS: metoPROLOL SUCCINATE 25 MG TAB.SR.24H (FP) PO SCH (09:42)
[2020-04-03] MEDS: RANOLAZINE E.R. 500 MG TABLET (FP) PO SCH ×2 (09:42→23:20)
[2020-04-03] MEDS: PANTOPRAZOLE SODIUM 40 MG VIAL IVPUSH SCH (09:42)
[2020-04-03] MEDS ORDERED: oxyCODONE HCL 5 MG TABLET PO PRN ×2 (17:03→17:04)
[2020-04-03] MEDS: ATORVASTATIN CA 40 MG TABLET (FP) PO SCH (23:20)
[2020-04-04] MEDS ORDERED: CARVEDILOL 3.125 MG TABLET (FP) PO SCH (10:00)
[2020-04-04] MEDS: DEXTROSE 5%-0.45% SALINE 1,000 ML IV SCH (10:15)
[2020-04-04] MEDS: RANOLAZINE E.R. 500 MG TABLET (FP) PO SCH (10:15)
[2020-04-04] MEDS: ASPIRIN 81 MG CHEWABLE TABLETS PO SCH (10:15)
[2020-04-04] MEDS: amLODIPine BESYLATE 10 MG TABLET (FP) PO SCH (10:15)
[2020-04-04] MEDS: PANTOPRAZOLE SODIUM 40 MG VIAL IVPUSH SCH (10:15)
[2020-04-04 11:45] VITALS: BP 128/74; PULSE 82; TEMP 98.4
== END 2020-04-04 11:48 | disposition home or self-care (01) ==
LOC: JER 16:11 → INTOOBSV 19:00 → JERBED 19:00 → J6WEST-2 03-30 03:10
PROVIDERS: ADMIT Internal Medicine; ATTEND Internal Medicine
PROC: 3E0234Z Introduction of Serum, Toxoid and Vaccine into Muscle, Percutaneous Approach (ICD-10-PCS; principal; 2020-03-29)
PROC: 3E023GC Introduction of Other Therapeutic Substance into Muscle, Percutaneous Approach (ICD-10-PCS; 2020-03-29)
PROC: 3E0337Z Introduction of Electrolytic and Water Balance Substance into Peripheral Vein, Percutaneous Approach (ICD-10-PCS; 2020-03-29)
PROC: 3E013VG Introduction of Insulin into Subcutaneous Tissue, Percutaneous Approach (ICD-10-PCS; 2020-03-29)
DX: E87.5 Hyperkalemia (principal); R00.1 Bradycardia, unspecified; I25.10 Atherosclerotic heart disease of native coronary artery without angina pectoris; Z95.5 Presence of coronary angioplasty implant and graft; Z86.73 Personal history of transient ischemic attack (TIA), and cerebral infarction without residual deficits; I10 Essential (primary) hypertension; E78.5 Hyperlipidemia, unspecified; Z95.1 Presence of aortocoronary bypass graft; K52.9 Noninfective gastroenteritis and colitis, unspecified; Z88.0 Allergy status to penicillin; K80.20 Calculus of gallbladder without cholecystitis without obstruction; Z95.3 Presence of xenogenic heart valve; I21.4 Non-ST elevation (NSTEMI) myocardial infarction; G89.29 Other chronic pain
CPT/HCPCS: 36415; 71045-TC-FY; 76705-TC; 80048; 80053; 82550; 82728; 83615; 83735; 83880; 84100; 84132; 84443; 84484; 85025; 85610; 85730; 86140; 93005; 93010; 96361; 96374; 96375; 96376; 97116-GP; 97162-GP; 99285-25; C9803; G0378; U0003

== ENCOUNTER 2021-06-26 12:00 | Inpatient (IN) | payer BC, OTHER ==
[2021-06-26 12:32] VITALS: BMI 21.7
[2021-06-26] MEDS ORDERED: ACETAMINOPHEN 1000 MG/100 ML BAG IVPB ONE (14:31)
[2021-06-26 15:37] LABS: BASO % 0.7 % (0-2.0); EOS % 1.2 % (0-4.5); HEMATOCRIT 42.4 % (32.4-45.2); HEMOGLOBIN 13.9 GM/dL (10.7-15.3); LYMPH % 51.7 % (8-40); MCH 30.4 pg (25.7-33.7); MCHC 32.8 g/dl (32.0-36.0); MEAN CELL VOLUME 92.7 fl (80-96); MEAN PLT VOLUME 9.1 fl (7.5-11.1); MONO % 7.8 % (3.8-10.2); NEUT % 38.6 % (42.8-82.8); PLATELET COUNT 309 10^3/uL (134-434); RBC 4.58 M/mm3 (3.60-5.2); WHITE BLOOD COUNT 6.4 K/mm3 (4.0-10.0)
[2021-06-26 16:14] LABS: INR 0.96 (0.83-1.09)
[2021-06-26 16:17] LABS: ACTIVATED PTT 35.8 SECONDS (25.2-36.5)
[2021-06-26] MEDS ORDERED: ACETAMINOPHEN INJECTION 100 ML IVPB ONE (16:29)
[2021-06-26 16:33] LABS: BILIRUBIN,TOTAL 0.7 mg/dL (0.2-1); BLOOD UREA NITROGEN 25.4 mg/dL (7-18); CALCIUM 9.9 mg/dL (8.5-10.1); CREATININE 1.2 mg/dL (0.55-1.3); TOT PROT 8.1 g/dl (6.4-8.2)
[2021-06-26 19:29] LABS: CALCIUM 8.9 mg/dL (8.5-10.1)
[2021-06-26 19:30] LABS: BLOOD UREA NITROGEN 21.8 mg/dL (7-18)
[2021-06-26 20:36] LABS: PH,URINE 5.5 (5.0-8.0); URINE APPEARANCE CLEAR; URINE BILIRUBIN NEGATIVE (NEGATIVE); URINE COLOR YELLOW; URINE GLUCOSE (UA) NEGATIVE (NEGATIVE); URINE KETONE NEGATIVE (NEGATIVE); URINE LEUK ESTERASE NEGATIVE (NEGATIVE); URINE NITRITE NEGATIVE (NEGATIVE); URINE PROTEIN NEGATIVE (NEGATIVE); URINE UROBILINOGEN 0.2 mg/dL (0.2-1.0)
[2021-06-26] MEDS ORDERED: morphine CARPU-JECT 2 MG/1 ML DISP.SYRIN IVPUSH STA (20:49)
[2021-06-26] MEDS ORDERED: ASPIRIN 325 MG TABLET PO STA (23:49)
[2021-06-27] MEDS ORDERED: ASPIRIN 81 MG CHEWABLE TABLETS ONE
[2021-06-27] MEDS ORDERED: LORazepam 0.5 MG TABLET PO ONE (01:40)
[2021-06-27] MEDS: SACUBITRIL/VALSARTAN 24 MG-26 MG TABLET PO SCH ×2 (02:11→10:22)
[2021-06-27] MEDS ORDERED: ACETAMINOPHEN 325 MG TABLET (FP) PO PRN (10:00)
[2021-06-27] MEDS ORDERED: ASPIRIN 81 MG CHEWABLE TABLETS PO SCH (10:00)
[2021-06-27] MEDS: oxyCODONE HCL 5 MG TABLET PO PRN ×2 (10:16→21:30)
[2021-06-27] MEDS ORDERED: ALPRAZolam 1 MG TABLET PO PRN (13:15)
[2021-06-27] MEDS: CLOPIDOGREL BISULFATE 75 MG TABLET (FP) PO SCH (14:13)
[2021-06-27] MEDS ORDERED: MINERAL OIL ENEMA 133 ML ENEMA RC ONE (17:30)
[2021-06-27] MEDS: EZETIMIBE 10 MG TABLET (FP) PO SCH (21:26)
[2021-06-27] MEDS: RANOLAZINE E.R. 500 MG TABLET (FP) PO SCH (21:26)
[2021-06-27] MEDS: ATORVASTATIN CA 40 MG TABLET (FP) PO SCH (21:26)
[2021-06-27] MEDS ORDERED: CARVEDILOL 3.125 MG TABLET (FP) PO SCH (22:00)
[2021-06-27] MEDS ORDERED: ATORVASTATIN CA 80 MG TABLET (FP) PO SCH (22:00)
[2021-06-28] MEDS: CARVEDILOL 3.125 MG TABLET (FP) PO SCH ×2 (10:17→21:31)
[2021-06-28] MEDS: RANOLAZINE E.R. 500 MG TABLET (FP) PO SCH ×2 (10:18→21:31)
[2021-06-28] MEDS: CLOPIDOGREL BISULFATE 75 MG TABLET (FP) PO SCH (10:18)
[2021-06-28] MEDS ORDERED: ONDANSETRON 4 MG/2 ML VIAL IVPUSH PRN (13:53)
[2021-06-28] MEDS ORDERED: amLODIPine BESYLATE 10 MG TABLET (FP) PO ONE (14:00)
[2021-06-28] MEDS ORDERED: CARVEDILOL 6.25 MG TABLET (FP) PO ONE (14:00)
[2021-06-28] MEDS ORDERED: ONDANSETRON 4 MG/2 ML VIAL IVPUSH ONE (14:00)
[2021-06-28] MEDS: ATORVASTATIN CA 40 MG TABLET (FP) PO SCH (21:31)
[2021-06-28] MEDS: EZETIMIBE 10 MG TABLET (FP) PO SCH (21:31)
[2021-06-28] MEDS: oxyCODONE HCL 5 MG TABLET PO PRN (21:31)
[2021-06-29] MEDS ORDERED: amLODIPine BESYLATE 10 MG TABLET (FP) PO SCH (10:00)
[2021-06-29 10:18] VITALS: BP 131/73; PULSE 60; TEMP 98.5
[2021-06-29] MEDS: CLOPIDOGREL BISULFATE 75 MG TABLET (FP) PO SCH (10:20)
[2021-06-29] MEDS: RANOLAZINE E.R. 500 MG TABLET (FP) PO SCH (10:20)
[2021-06-29] MEDS: CARVEDILOL 3.125 MG TABLET (FP) PO SCH (10:20)
== END 2021-06-29 11:30 | disposition home or self-care (01) | DRG 312 ==
LOC: JER 12:00 → JERBED 17:06 → J4W 06-27 01:28
PROVIDERS: ADMIT Internal Medicine; ATTEND Internal Medicine
DX: R55 Syncope and collapse (principal); I50.22 Chronic systolic (congestive) heart failure; I69.354 Hemiplegia and hemiparesis following cerebral infarction affecting left non-dominant side; E87.5 Hyperkalemia; K80.20 Calculus of gallbladder without cholecystitis without obstruction; I25.10 Atherosclerotic heart disease of native coronary artery without angina pectoris; Z98.61 Coronary angioplasty status; Z95.1 Presence of aortocoronary bypass graft; I10 Essential (primary) hypertension; E78.5 Hyperlipidemia, unspecified
CPT/HCPCS: 36415; 70450-TC; 71045-TC-FY; 71046-TC-FY; 72125-TC; 72170-TC-FY; 73030-TC-LT-FY; 73030-TC-RT-FY; 73110-TC-LT-FY; 73130-TC-LT-FY; 73562-TC-RT-FY; 80048; 80053; 81003; 82550; 82553; 84484; 85025; 85610; 85730; 86850; 86900; 86901; 87086; 93005; 93010; 93306-TC; 93880-TC; 97116-GP; 97161-GP; 99285-25; C9803-CS; U0003; U0005

== ENCOUNTER 2023-09-30 04:38 | Inpatient (IN) | payer BC, OTHER ==
[2023-09-30 05:55] LABS: BASO % 1.2 % (0-2.0); EOS % 1.8 % (0-4.5); HEMATOCRIT 36.1 % (32.4-45.2); HEMOGLOBIN 11.9 GM/dL (10.7-15.3); LYMPH % 29.3 % (8-40); MCH 29.7 pg (25.7-33.7); MCHC 33.1 g/dl (32.0-36.0); MEAN CELL VOLUME 89.7 fl (80-96); MEAN PLT VOLUME 8.2 fl (7.5-11.1); NEUT % 62.7 % (42.8-82.8); PLATELET COUNT 227 10^3/uL (134-434); RBC 4.02 M/mm3 (3.60-5.2); RDW 13.3 % (11.6-15.6); WHITE BLOOD COUNT 6.6 K/mm3 (4.0-10.0)
[2023-09-30 06:03] LABS: URINE APPEARANCE CLEAR; URINE BILIRUBIN NEGATIVE (NEGATIVE); URINE COLOR YELLOW; URINE GLUCOSE (UA) NEGATIVE (NEGATIVE); URINE KETONE NEGATIVE (NEGATIVE); URINE LEUK ESTERASE NEGATIVE (NEGATIVE); URINE NITRITE NEGATIVE (NEGATIVE); URINE PROTEIN TRACE (NEGATIVE); URINE UROBILINOGEN 0.2 mg/dL (0.2-1.0)
[2023-09-30 06:07] LABS: INR 0.85 (0.83-1.09); PROTHROMBIN TIME (PATIENT) 9.8 SEC (9.7-13.0)
[2023-09-30 06:09] LABS: ACTIVATED PTT 36.9 SECONDS (25.2-36.5)
[2023-09-30 06:19] LABS: POTASSIUM 5.2 mmol/L (3.5-5.1)
[2023-09-30 06:21] LABS: CALCIUM 8.6 mg/dL (8.5-10.1)
[2023-09-30 06:22] LABS: ALBUMIN 3.1 g/dl (3.4-5.0); BLOOD UREA NITROGEN 28.2 mg/dL (7-18); MAGNESIUM 1.9 mg/dL (1.8-2.4)
[2023-09-30 06:25] LABS: CREATININE 1.3 mg/dL (0.55-1.3)
[2023-09-30 06:26] LABS: BILIRUBIN,TOTAL 0.4 mg/dL (0.2-1)
[2023-09-30 06:27] LABS: TOT PROT 6.3 g/dl (6.4-8.2)
[2023-09-30 06:30] LABS: N-TERMINAL BNP 6052.7 pg/ml (5-125)
[2023-09-30] MEDS ORDERED: CEFTRIAXONE 1 GM/50 ML BAG ONE (06:48)
[2023-09-30] MEDS ORDERED: AZITHROMYCIN IVPB 500 MG/250 ML BAG IVPB ONE (06:48)
[2023-09-30] MEDS: AZITHROMYCIN IVPB 500 MG in DEXTROSE 5%-WATER - 250 ML IVPB ONE (07:05)
[2023-09-30] MEDS ORDERED: FUROSEMIDE 40 MG/4 ML INJECTABLE VIAL ONE (07:55)
[2023-09-30] MEDS: FUROSEMIDE 40 MG/4 ML INJECTABLE VIAL IVPUSH STA (08:17)
[2023-09-30] MEDS: FAMOTIDINE 10 MG TABLET PO SCH (08:40)
[2023-09-30] MEDS: RANOLAZINE E.R. 500 MG TABLET (FP) PO SCH (08:40)
[2023-09-30] MEDS: amLODIPine BESYLATE 10 MG TABLET (FP) PO SCH (08:40)
[2023-09-30] MEDS: CARVEDILOL 6.25 MG TABLET (FP) PO SCH (08:40)
[2023-09-30] MEDS ORDERED: FAMOTIDINE 10 MG TABLET ONE (08:41)
[2023-09-30] MEDS ORDERED: amLODIPine BESYLATE 10 MG TABLET (FP) ONE (08:41)
[2023-09-30] MEDS ORDERED: RANOLAZINE E.R. 500 MG TABLET (FP) ONE (08:41)
[2023-09-30] MEDS ORDERED: CARVEDILOL 6.25 MG TABLET (FP) ONE (08:41)
[2023-09-30] MEDS ORDERED: NITROGLYCERIN SUBLINGUAL 1/150 0.4 MG TAB ONE (09:01)
[2023-09-30] MEDS: NITROGLYCERIN 0.1 MG/HOUR TD PATCH TD STA (09:07)
[2023-09-30] MEDS: EZETIMIBE 10 MG TABLET (FP) PO SCH (09:52)
[2023-09-30] MEDS ORDERED: ASPIRIN 325 MG TABLET ONE (15:07)
[2023-09-30] MEDS ORDERED: oxyCODONE HCL 5 MG TABLET ONE (15:08)
[2023-09-30] MEDS: oxyCODONE HCL 5 MG TABLET PO PRN (15:11)
[2023-09-30] MEDS: ASPIRIN 325 MG TABLET PO ONE (15:11)
[2023-09-30] MEDS ORDERED: ONDANSETRON 4 MG/2 ML VIAL ONE (18:44)
[2023-09-30] MEDS: ONDANSETRON 4 MG/2 ML VIAL IVPUSH ONE (18:56)
[2023-09-30] MEDS: FAMOTIDINE 20 MG TABLET PO ONE (23:49)
[2023-09-30] MEDS: FUROSEMIDE 40 MG/4 ML INJECTABLE VIAL IVPUSH ONE (23:51)
[2023-10-01] MEDS: ATORVASTATIN CA 40 MG TABLET (FP) PO SCH (00:14)
[2023-10-01] MEDS: TEMAZEPAM 15 MG CAPSULE PO SCH (00:14)
[2023-10-01] MEDS: FUROSEMIDE 40 MG/4 ML INJECTABLE VIAL IVPUSH SCH (06:49)
[2023-10-01 08:00] LABS: BASO % 0.6 % (0-2.0); EOS % 1.3 % (0-4.5); HEMATOCRIT 37.2 % (32.4-45.2); HEMOGLOBIN 12.1 GM/dL (10.7-15.3); LYMPH % 42.5 % (8-40); MCHC 32.5 g/dl (32.0-36.0); MEAN CELL VOLUME 89.1 fl (80-96); MONO % 7.9 % (3.8-10.2); NEUT % 47.7 % (42.8-82.8); PLATELET COUNT 219 10^3/uL (134-434); RBC 4.17 M/mm3 (3.60-5.2); RDW 13.5 % (11.6-15.6)
[2023-10-01 08:25] LABS: POTASSIUM 4.2 mmol/L (3.5-5.1)
[2023-10-01 08:34] LABS: CALCIUM 9.4 mg/dL (8.5-10.1)
[2023-10-01 08:35] LABS: ALBUMIN 3.3 g/dl (3.4-5.0); BLOOD UREA NITROGEN 27.2 mg/dL (7-18); MAGNESIUM 1.9 mg/dL (1.8-2.4)
[2023-10-01 08:38] LABS: CREATININE 1.6 mg/dL (0.55-1.3)
[2023-10-01 08:40] LABS: BILIRUBIN,TOTAL 0.7 mg/dL (0.2-1); TOT PROT 6.4 g/dl (6.4-8.2)
[2023-10-01] MEDS: ONDANSETRON 4 MG TABLET PO PRN (10:36)
[2023-10-01] MEDS: ASPIRIN 325 MG ENTERIC COATED TABLET (FP) PO SCH (10:40)
[2023-10-01] MEDS: FAMOTIDINE 10 MG TABLET PO SCH (10:40)
[2023-10-01] MEDS: NITROGLYCERIN 0.2 MG/HOUR TD PATCH TD SCH (10:41)
[2023-10-01] MEDS: ONDANSETRON 4 MG/2 ML VIAL IVPUSH PRN (12:46)
[2023-10-01] MEDS: GABAPENTIN 300 MG CAPSULE PO SCH (21:02)
[2023-10-02 07:19] LABS: BASO % 1.3 % (0-2.0); EOS % 0.7 % (0-4.5); HEMATOCRIT 38.3 % (32.4-45.2); HEMOGLOBIN 12.6 GM/dL (10.7-15.3); LYMPH % 45.1 % (8-40); MCH 29.1 pg (25.7-33.7); MCHC 32.9 g/dl (32.0-36.0); MEAN CELL VOLUME 88.4 fl (80-96); MEAN PLT VOLUME 8.1 fl (7.5-11.1); MONO % 10.1 % (3.8-10.2); NEUT % 42.8 % (42.8-82.8); PLATELET COUNT 249 10^3/uL (134-434); RBC 4.33 M/mm3 (3.60-5.2); RDW 13.3 % (11.6-15.6); WHITE BLOOD COUNT 5.3 K/mm3 (4.0-10.0)
[2023-10-02 07:30] LABS: CHLORIDE 98 mmol/L (98-107); POTASSIUM 4.2 mmol/L (3.5-5.1); SODIUM 137 mmol/L (136-145)
[2023-10-02 07:34] LABS: ALBUMIN 3.5 g/dl (3.4-5.0); BLOOD UREA NITROGEN 40.5 mg/dL (7-18); CALCIUM 9.3 mg/dL (8.5-10.1); GLUCOSE,RANDOM 90 mg/dL (74-106)
[2023-10-02 07:35] LABS: ANION GAP 9 mmol/L (4-13); CO2 30 mmol/L (21-32)
[2023-10-02 07:37] LABS: SGOT/AST 35 U/L (15-37); SGPT/ALT 39 U/L (13-61)
[2023-10-02 07:39] LABS: BILIRUBIN,TOTAL 0.6 mg/dL (0.2-1); TOT PROT 6.7 g/dl (6.4-8.2)
[2023-10-02 07:40] LABS: ALK PHOS 80 U/L (45-117)
[2023-10-02] MEDS: DEXTROSE 5%-0.45% SALINE 1,000 ML IV SCH (09:45)
[2023-10-02] MEDS: ACETAMINOPHEN 325 MG TABLET (FP) PO PRN (09:51)
[2023-10-02] MEDS ORDERED: FUROSEMIDE 40 MG TABLET (FP) PO SCH (10:00)
[2023-10-02] MEDS ORDERED: ONDANSETRON 4 MG/2 ML VIAL IVPUSH PRN (21:23)
[2023-10-02] MEDS: BISACODYL 10 MG SUPP.RECT PR ONE (22:17)
[2023-10-03 07:38] LABS: ALBUMIN 3.3 g/dl (3.4-5.0); BLOOD UREA NITROGEN 47.2 mg/dL (7-18); CALCIUM 8.6 mg/dL (8.5-10.1)
[2023-10-03 07:41] LABS: CREATININE 1.8 mg/dL (0.55-1.3)
[2023-10-03 07:42] LABS: BILIRUBIN,TOTAL 0.6 mg/dL (0.2-1); TOT PROT 6.2 g/dl (6.4-8.2)
[2023-10-04 07:44] LABS: POTASSIUM 4.8 mmol/L (3.5-5.1)
[2023-10-04 07:47] LABS: CALCIUM 8.9 mg/dL (8.5-10.1)
[2023-10-04 07:48] LABS: ALBUMIN 3.2 g/dl (3.4-5.0); BLOOD UREA NITROGEN 35.8 mg/dL (7-18)
[2023-10-04 07:51] LABS: CREATININE 1.5 mg/dL (0.55-1.3)
[2023-10-04 07:53] LABS: BILIRUBIN,TOTAL 0.8 mg/dL (0.2-1)
[2023-10-04] MEDS: ALPRAZolam 0.25 MG TABLET PO PRN (22:19)
[2023-10-05] MEDS: ESCITALOPRAM OXALATE 10 MG TABLET PO SCH (11:07)
[2023-10-05] MEDS ORDERED: QUINAPRIL HCL 5 MG TABLET PO ONE (13:00)
[2023-10-05] MEDS ORDERED: QUINAPRIL HCL 5 MG TABLET PO SCH (13:00)
[2023-10-05] MEDS: LISINOPRIL 5 MG TABLET PO ONE (14:06)
[2023-10-05] MEDS: TEMAZEPAM 15 MG CAPSULE PO PRN (21:19)
[2023-10-06] MEDS: LISINOPRIL 5 MG TABLET PO SCH (11:49)
[2023-10-06] MEDS ORDERED: BISACODYL 10 MG SUPP.RECT PR PRN (21:00)
[2023-10-06] MEDS: oxyCODONE HCL 5 MG TABLET PO PRN (21:31)
[2023-10-07 08:37] LABS: EOS % 3.5 % (0-4.5); HEMATOCRIT 33.6 % (32.4-45.2); HEMOGLOBIN 11.3 GM/dL (10.7-15.3); LYMPH % 51.4 % (8-40); MCH 29.7 pg (25.7-33.7); MCHC 33.7 g/dl (32.0-36.0); MEAN CELL VOLUME 88.2 fl (80-96); MEAN PLT VOLUME 8.2 fl (7.5-11.1); MONO % 9.6 % (3.8-10.2); NEUT % 34.5 % (42.8-82.8); PLATELET COUNT 242 10^3/uL (134-434); RBC 3.81 M/mm3 (3.60-5.2); RDW 13.3 % (11.6-15.6); WHITE BLOOD COUNT 4.8 K/mm3 (4.0-10.0)
[2023-10-07 08:53] LABS: POTASSIUM 5.9 mmol/L (3.5-5.1)
[2023-10-07 09:00] LABS: ALBUMIN 3.3 g/dl (3.4-5.0); BLOOD UREA NITROGEN 45.2 mg/dL (7-18); CALCIUM 8.8 mg/dL (8.5-10.1)
[2023-10-07 09:02] LABS: BILIRUBIN,TOTAL 0.6 mg/dL (0.2-1); TOT PROT 6.4 g/dl (6.4-8.2)
[2023-10-07 09:05] LABS: CREATININE 1.7 mg/dL (0.55-1.3)
[2023-10-07 09:08] LABS: N-TERMINAL BNP 913.5 pg/ml (5-125)
[2023-10-07 11:01] VITALS: BMI 18.3
[2023-10-08 08:44] LABS: POTASSIUM 5.4 mmol/L (3.5-5.1)
[2023-10-08 08:51] LABS: CALCIUM 9.2 mg/dL (8.5-10.1)
[2023-10-08 08:52] LABS: ALBUMIN 3.2 g/dl (3.4-5.0); BLOOD UREA NITROGEN 35.4 mg/dL (7-18)
[2023-10-08 08:53] LABS: BILIRUBIN,TOTAL 0.6 mg/dL (0.2-1)
[2023-10-08 08:55] LABS: CREATININE 1.7 mg/dL (0.55-1.3)
[2023-10-08 11:30] VITALS: BP 107/73; PULSE 70; RESP 18; TEMP 98.1
== END 2023-10-08 14:15 | DRG 291 ==
LOC: JER 04:38 → JERBED 06:27 → J4W 20:34
PROVIDERS: ADMIT Internal Medicine; ATTEND Internal Medicine
DX: I11.0 Hypertensive heart disease with heart failure (principal); I50.33 Acute on chronic diastolic (congestive) heart failure; E44.0 Moderate protein-calorie malnutrition; Z68.1 Body mass index [BMI] 19.9 or less, adult; I25.10 Atherosclerotic heart disease of native coronary artery without angina pectoris; K57.90 Diverticulosis of intestine, part unspecified, without perforation or abscess without bleeding; E78.00 Pure hypercholesterolemia, unspecified; I34.0 Nonrheumatic mitral (valve) insufficiency; K44.9 Diaphragmatic hernia without obstruction or gangrene; K80.20 Calculus of gallbladder without cholecystitis without obstruction; R09.02 Hypoxemia; G89.29 Other chronic pain; F32.A Depression, unspecified; Z95.5 Presence of coronary angioplasty implant and graft; Z95.1 Presence of aortocoronary bypass graft; Z95.2 Presence of prosthetic heart valve
CPT/HCPCS: 0241U-QW; 36415; 71045-TC-FY; 76705-TC; 80053; 80061; 81003; 82550; 83735; 83880; 84443; 84484; 85025; 85610; 85730; 87086; 93005; 93010; 93306-TC; 97116-GP; 97162-GP; 99285-25